=== PATIENT | female | born 1990 | race Caucasian/White ===

== ENCOUNTER 2017-05-19 15:23 | Emergency (ER) | payer OTHER ==
[~2017-05-19 15:23] MED LIST: LEVAQUIN500 MG PO; NIKKI 3 MG-0.01 EACH PO; SENOKOT-S TABL1 EACH PO
== END 2017-05-19 16:30 | disposition left against medical advice (07) ==
LOC: ER1 15:23
DX: Z53.21 Procedure and treatment not carried out due to patient leaving prior to being seen by health care provider (principal)

== ENCOUNTER 2017-05-19 20:32 | Emergency (ER) | payer OTHER | END 2017-05-20 01:38 | disposition home or self-care (01) | LOC: ER1 20:32 | DX: N39.0 Urinary tract infection, site not specified (principal); R11.0 Nausea | CPT/HCPCS: 81001; 84703; 87086; 99284; Q0162 ==

== ENCOUNTER 2021-01-22 09:26 | Emergency (ER) | payer OTHER ==
[~2021-01-22 09:26] MED LIST changes: +FLONASE 0.05% N16 GM; +IBUPROFEN600 MG PO; +Magic Mouth Wash PO; +PREDNISONE 50 M50 MG PO; +PROTONIX40 MG PO; +TAMIFLU 75 MG C75 MG PO; +ZYRTEC10 MG PO
[2021-01-22 10:35] LABS: HEMOGLOBIN 13.4 gm/dl (12.3-15.3); RED BLOOD COUNT 4.44 M/UL (4.00-5.10); WHITE BLOOD COUNT 12.6 K/UL (4.5-11.0)
[2021-01-22 10:59] LABS: BUN/CREATININE RATIO 10 (0-10)
== END 2021-01-22 12:25 | disposition home or self-care (01) ==
LOC: ER1 09:26
PROVIDERS: Emergency Medicine
DX: J06.9 Acute upper respiratory infection, unspecified (principal); D72.829 Elevated white blood cell count, unspecified; Z90.89 Acquired absence of other organs; Z20.822 Contact with and (suspected) exposure to COVID-19
CPT/HCPCS: 0240U; 36415; 71045; 80053; 81001; 83605; 84703; 85025; 87040; 87081; 87880; 93005; 96374; 99284; J2405; J7030

== ENCOUNTER 2021-07-05 10:02 | Emergency (ER) | payer OTHER | END 2021-07-05 12:39 | disposition home or self-care (01) | LOC: ER1 10:02 | DX: R52 Pain, unspecified (principal); J02.9 Acute pharyngitis, unspecified; R11.0 Nausea; Z90.89 Acquired absence of other organs; Z20.822 Contact with and (suspected) exposure to COVID-19 | CPT/HCPCS: 87081; 87880; 99283; U0002 ==

== ENCOUNTER 2021-07-20 14:25 | Emergency (ER) | payer OTHER | END 2021-07-20 19:20 | disposition home or self-care (01) | LOC: ER1 14:25 | DX: J02.9 Acute pharyngitis, unspecified (principal); Z20.822 Contact with and (suspected) exposure to COVID-19; Z90.49 Acquired absence of other specified parts of digestive tract | CPT/HCPCS: 87081; 87880; 99284; U0002 ==

== ENCOUNTER 2021-08-01 13:22 | Emergency (ER) | payer OTHER ==
[2021-08-01] MEDS ORDERED: ZITHROMAX250 MG PO (18:08)
[2021-08-01] MEDS ORDERED: ONDANSETRON ODT4 MG SL (18:08)
== END 2021-08-01 18:20 | disposition home or self-care (01) ==
LOC: ER1 13:22
DX: U07.1 COVID-19 (principal); J12.82 Pneumonia due to coronavirus disease 2019; Z90.89 Acquired absence of other organs; Z79.899 Other long term (current) drug therapy
CPT/HCPCS: 71045; 87081; 87880; 99283; U0003

== ENCOUNTER 2021-12-12 20:17 | Emergency (ER) | payer OTHER ==
[~2021-12-12 20:17] MED LIST changes: +ONDANSETRON ODT4 MG SL; +ZITHROMAX250 MG PO
== END 2021-12-12 22:27 | disposition home or self-care (01) ==
LOC: ER1 20:17
DX: U07.1 COVID-19 (principal)
CPT/HCPCS: 0240U; 71045; 87081; 87880; 99283

== ENCOUNTER 2022-01-28 12:26 | Emergency (ER) | payer OTHER ==
[2022-01-28 13:09] LABS: HEMOGLOBIN 12.9 gm/dl (12.3-15.3); RED BLOOD COUNT 4.32 M/UL (4.00-5.10)
[2022-01-28 13:35] LABS: BUN/CREATININE RATIO 6 (0-10)
[2022-01-28] MEDS ORDERED: XOFLUZA80 MG PO (15:36)
== END 2022-01-28 16:19 | disposition home or self-care (01) ==
LOC: ER1 12:26
PROVIDERS: Nurse Practitioner
DX: J10.1 Influenza due to other identified influenza virus with other respiratory manifestations (principal); Z20.822 Contact with and (suspected) exposure to COVID-19
CPT/HCPCS: 0240U; 71045; 80053; 81001; 82550; 82553; 83605; 84484; 85025; 87040; 93005; 96374; 99285; J0696

== ENCOUNTER 2022-02-19 10:23 | Emergency (ER) | payer OTHER ==
[~2022-02-19 10:23] MED LIST changes: +XOFLUZA80 MG PO
[2022-02-19 11:32] LABS: HEMOGLOBIN 12.2 gm/dl (12.3-15.3); RED BLOOD COUNT 4.06 M/UL (4.00-5.10); WHITE BLOOD COUNT 7.2 K/UL (4.5-11.0)
[2022-02-19 11:56] LABS: BUN/CREATININE RATIO 8 (0-10)
== END 2022-02-19 14:08 | disposition home or self-care (01) ==
LOC: ER1 10:23
PROVIDERS: Physician Assistant
DX: R42 Dizziness and giddiness (principal); Z90.49 Acquired absence of other specified parts of digestive tract
CPT/HCPCS: 80053; 81001; 82550; 82553; 84439; 84443; 84484; 84703; 85025; 93005; 99284

== ENCOUNTER → 2022-04-10 | Outpatient (CLI) | payer OTHER | LOC: KOH-I 15:11 | DX: M54.50 Low back pain, unspecified (principal) | CPT/HCPCS: 72100 ==